=== PATIENT | female | born 1970 | race Caucasian/White ===

== ENCOUNTER 2024-04-12 13:39 | Emergency (ER) | payer BC, SELFPAY ==
[2024-04-12 13:43] VITALS: BP 141/76; PULSE 75; RESP 17; TEMP 36.9; O2SAT 100
--- NOTE | 2024-04-12 14:00 | DI.RAD_ITS ---
Exam(s) XR RIBS RT W PA LAT CHEST EXAM: XR RIBS RT W PA LAT CHEST CLINICAL HISTORY: right rib pain 5th and 6th ant ribs TECHNIQUE: 2D digital imaging was performed. COMPARISON: No exams were available for comparison FINDINGS: RIBS 3 VIEWS-RIGHT There is a nondisplaced subtle fracture of the right 9th rib. Possibly also right 8th rib. There al so appears to be a nondisplaced fracture line in the right 6 rib. No obvious rib lesions. Surgical clips are noted in the right breast. CXR- 2 VIEWS: No lung contusion or pneumothorax. There is no pleural effusion evident. Heart size is normal and there is no significant mediastinal widening. IMPRESSION: 1. Nondisplaced fracture of the right 9th rib and probably also fractures of the right 8th and 6th ri bs. 2. No ipsilateral lung nor pleural abnormality evident. No pneumothorax. DATA REPOSITORY: RADIATION DOSE DELIVERED:
[2024-04-12] MEDS: Acetaminophen 500 MG TAB 1000 MG PO (15:05)
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
== END 2024-04-12 15:31 | disposition home or self-care (01) ==
LOC: ER 15:56
PROVIDERS: Emergency Provider Physician Assistant
DX: S22.41XA Multiple fractures of ribs, right side, initial encounter for closed fracture (principal); V18.0XXA Pedal cycle driver injured in noncollision transport accident in nontraffic accident, initial encounter
CPT/HCPCS: 99283; 71046; 71100